=== PATIENT | male | born 1985 | race Caucasian/White ===

== ENCOUNTER 2017-10-19 12:39 | Emergency (ER) | payer OTHER ==
[2017-10-19] MEDS ORDERED: CYCLOBENZAPRINE 10 MG TAB ONE (14:55)
[2017-10-19] MEDS ORDERED: KETOROLAC 30 MG/ML INJ ONE (14:55)
--- NOTE | 2017-10-19 15:09 | ER ---
Nurse's Notes [facility] Name: Elias Kilgore Age: 32 yrs Sex: Male : 1985 Arrival Date: 10/19/2017 Time: 12:41 Bed 11 Private MD: José Flores Diagnosis: Low back pain Presentation: 10/19 12:51 Presenting complaint: Patient states: " I have been having back pain that goes down to ph knee." Reports LL back pain that radiates to L hip and L knee, denies injury. Transition of care: patient was not received from another setting of care. Onset of symptoms was October 19, 2017. Risk Assessment: Do you want to hurt yourself or someone else? Patient reports no desire to harm self or others. Initial Sepsis Screen: Does the patient meet any 2 criteria? No. Patient's initial sepsis screen is negative. Does the patient have a suspected source of infection? No. Patient's initial sepsis screen is negative. Care prior to arrival: None. 12:51 Method Of Arrival: Ambulatory 12:51 Acuity: CHENTE 4 ph Historical: - Allergies: 12:56 PENICILLINS; ph - Home Meds: 12:56 None [Active]; ph - PMHx: 12:56 None; ph - PSHx: 12:56 Knee surgery; ph - Immunization history:: Adult Immunizations. - Social history:: Smoking status: Patient/guardian denies using tobacco. - Ebola Screening: : Patient denies travel to an Ebola-affected area in the 21 days before illness onset. Screenin:03 Abuse screen: Denies threats or abuse. Nutritional screening: No deficits noted. tw2 Tuberculosis screening: No symptoms or risk factors identified. Fall Risk None identified. Assessment: 14:22 General: Appears in no apparent distress. well groomed, Behavior is calm, cooperative, tw2 appropriate for age. Pain: Complains of pain in back Pain radiates to left leg. Neuro: Level of Consciousness is awake, alert, obeys commands, Oriented to person, place, time, situation. Cardiovascular: Denies chest pain, shortness of breath, Capillary refill < 3 seconds Patient's skin is warm and dry. Respiratory: Airway is patent Respiratory effort is even, unlabored, Respiratory pattern is regular, symmetrical. GI: No signs and/or symptoms were reported involving the gastrointestinal system. : No signs and/or symptoms were reported regarding the genitourinary system. EENT: No signs and/or symptoms were reported regarding the EENT system. Derm: No signs and/or symptoms reported regarding the dermatologic system. Musculoskeletal: Circulation, motion, and sensation intact. Reports pain in back. 15:27 Reassessment: Patient appears in no apparent distress at this time. Patient and/or tw2 family updated on plan of care and expected duration. Pain level reassessed. Patient is alert, oriented x 3, equal unlabored respirations, skin warm/dry/pink. Patient states feeling better. Patient states symptoms have improved. Vital Signs: 12:56 BP 139 / 92; Pulse 94; Resp 18; Temp 97.2; Pulse Ox 96% on R/A; Weight 145.15 kg; ph Height 6 ft. 3 in. (190.50 cm); Pain 7/10; 14:47 BP 126 / 89; Pulse 96; Resp 17; Pulse Ox 99% on R/A; Pain 7/10; tw2 12:56 Body Mass Index 40.00 (145.15 kg, 190.50 cm) ph ED Course: 12:41 Patient arrived in ED. sb2 12:42 José Flores MD is Private Physician. sb2 12:56 Triage completed. ph 12:56 Arm band placed on. ph 14:22 Bed in low position. Call light in reach. Adult w/ patient. Pulse ox on. NIBP on. tw2 14:23 Katie Morrison FNP-C is [facility]. kb 14:23 Edi Kessler MD is Attending Physician. kb 14:46 Jinny Orodñez, MARTY is Primary Nurse. tw2 15:27 No provider procedures requiring assistance completed. Patient did not have IV access tw2 during this emergency room visit. Administered Medications: 14:53 Drug: Flexeril 10 mg Route: PO; tw2 15:26 Follow up: Response: No adverse reaction tw2 14:54 Drug: TORadol 60 mg Route: IM; Site: right deltoid; tw2 15:26 Follow up: Response: No adverse reaction; Pain is decreased tw2 Outcome: 15:09 Discharge ordered by . kb 15:27 Discharged to home ambulatory, with significant other. tw2 15:27 Condition: stable 15:27 Discharge instructions given to patient, significant other, Instructed on discharge instructions, follow up and referral plans. no drinking with medication, no driving heavy equipment, medication usage, Demonstrated understanding of instructions, follow-up care, medications, Prescriptions given X 2. 15:27 Patient left the ED. tw2 Signatures: Katie Morrison, DIALYSIS BIOMED TECHNICIAN-C DIALYSIS BIOMED TECHNICIAN-Elizabeth Luevano RN RN Ordoñez, MARTY Stearns RN tw2 Alida Earl 2
--- NOTE | 2017-10-19 15:09 | EDPHYS ---
Physician Documentation [facility] Name: Elias Kilgore Age: 32 yrs Sex: Male : 1985 Arrival Date: 10/19/2017 Time: 12:41 Bed 11 Private MD: José Flores ED Physician Edi Kessler HPI: 10/19 15:08 This 32 yrs old Male presents to ER via Ambulatory with complaints of Back kb Pain. 15:08 The patient presents with pain that is acute, with no known mechanism of injury. The kb symptoms are located in the low back. Onset: The symptoms/episode began/occurred this morning. The pain radiates to the left leg. Associated signs and symptoms: The patient has no apparent associated signs or symptoms. The problem was sustained when bending over. Modifying factors: The patient symptoms are alleviated by nothing, the patient symptoms are aggravated by any movement. Severity of symptoms: At their worst the symptoms were moderate, in the emergency department the symptoms are unchanged. The patient has not experienced similar symptoms in the past. The patient has not recently seen a physician. Historical: - Allergies: 12:56 PENICILLINS; ph - Home Meds: 12:56 None [Active]; ph - PMHx: 12:56 None; ph - PSHx: 12:56 Knee surgery; ph - Immunization history:: Adult Immunizations. - Social history:: Smoking status: Patient/guardian denies using tobacco. - Ebola Screening: : Patient denies travel to an Ebola-affected area in the 21 days before illness onset. ROS: 15:07 Constitutional: Negative for fever, chills, and weight loss, Cardiovascular: Negative kb for chest pain, palpitations, and edema, Respiratory: Negative for shortness of breath, cough, wheezing, and pleuritic chest pain, Abdomen/GI: Negative for abdominal pain, nausea, vomiting, diarrhea, and constipation, : Negative for injury, bleeding, discharge, and swelling, MS/Extremity: Negative for injury and deformity, Skin: Negative for injury, rash, and discoloration, Neuro: Negative for headache, weakness, numbness, tingling, and seizure. 15:07 Back: Positive for pain at rest, pain with movement, radiated pain, of the low back area. Exam: 15:07 Constitutional: This is a well developed, well nourished patient who is awake, alert, kb and in no acute distress. Head/Face: Normocephalic, atraumatic. Chest/axilla: Normal chest wall appearance and motion. Nontender with no deformity. No lesions are appreciated. Cardiovascular: Regular rate and rhythm with a normal S1 and S2. No gallops, murmurs, or rubs. Normal PMI, no JVD. No pulse deficits. Respiratory: Lungs have equal breath sounds bilaterally, clear to auscultation and percussion. No rales, rhonchi or wheezes noted. No increased work of breathing, no retractions or nasal flaring. Abdomen/GI: Soft, non-tender, with normal bowel sounds. No distension or tympany. No guarding or rebound. No evidence of tenderness throughout. Skin: Warm, dry with normal turgor. Normal color with no rashes, no lesions, and no evidence of cellulitis. MS/ Extremity: Pulses equal, no cyanosis. Neurovascular intact. Full, normal range of motion. Neuro: Awake and alert, GCS 15, oriented to person, place, time, and situation. Cranial nerves II-XII grossly intact. Motor strength 5/5 in all extremities. Sensory grossly intact. Cerebellar exam normal. Normal gait. 15:07 Back: pain, that is moderate, of the low back area, ROM is normal, normal spinal alignment noted. Vital Signs: 12:56 BP 139 / 92; Pulse 94; Resp 18; Temp 97.2; Pulse Ox 96% on R/A; Weight 145.15 kg; ph Height 6 ft. 3 in. (190.50 cm); Pain 7/10; 14:47 BP 126 / 89; Pulse 96; Resp 17; Pulse Ox 99% on R/A; Pain 7/10; tw2 12:56 Body Mass Index 40.00 (145.15 kg, 190.50 cm) ph MDM: 14:27 Patient medically screened. kb 15:07 Data reviewed: vital signs, nurses notes. Data interpreted: Pulse oximetry: on room air kb is 99 %. Interpretation: normal. Counseling: I had a detailed discussion with the patient and/or guardian regarding: the historical points, exam findings, and any diagnostic results supporting the discharge/admit diagnosis, the need for outpatient follow up, a family practitioner, to return to the emergency department if symptoms worsen or persist or if there are any questions or concerns that arise at home. Administered Medications: 14:53 Drug: Flexeril 10 mg Route: PO; tw2 15:26 Follow up: Response: No adverse reaction tw2 14:54 Drug: TORadol 60 mg Route: IM; Site: right deltoid; tw2 15:26 Follow up: Response: No adverse reaction; Pain is decreased tw2 Disposition: 15:35 Co-signature as Attending Physician, Edi Kessler MD. rn Disposition: 10/19/17 15:09 Discharged to Home. Impression: Low back pain. - Condition is Stable. - Discharge Instructions: Back Injury Prevention, [id number], Back Pain, Adult, [id number]. - Prescriptions for Cyclobenzaprine 10 mg Oral Tablet - take 1 tablet by ORAL route every 8 hours As needed; 21 tablet. Diclofenac Sodium 75 mg Oral Tablet, Delayed Release (E.C.) - take 1 tablet by ORAL route 2 times per day As needed; 30 tablet. - Medication Reconciliation Form, Thank You Letter, Antibiotic Education, Prescription Opioid Use, Work release form, Family Work Release form. - Follow up: Emergency Department; When: As needed; Reason: Worsening of condition. Follow up: Private Physician; When: 2 - 3 days; Reason: Recheck today's complaints, Continuance of care, Re-evaluation by your physician. Signatures: Katie Morrison, BINDING FOLDER MACHINE-C BINDING FOLDER MACHINE-Ckb Edi Kessler MD MD rn Hall, Patricia, RN RN Jinny Ordoñez RN RN tw2 Corrections: (The following items were deleted from the chart) 15:27 15:09 10/19/2017 15:09 Discharged to Home. Impression: Low back pain. Condition is tw2 Stable. Forms are Work release form, Medication Reconciliation Form, Thank You Letter, Antibiotic Education, Prescription Opioid Use. Follow up: Emergency Department; When: As needed; Reason: Worsening of condition. Follow up: Private Physician; When: 2 - 3 days; Reason: Recheck today's complaints, Continuance of care, Re-evaluation by your physician. kb
== END 2017-10-19 15:27 | disposition home or self-care (01) ==
LOC: ER 12:39
DX: M54.5 Low back pain (principal); Z88.0 Allergy status to penicillin
CPT/HCPCS: 96372; 99283

== ENCOUNTER 2017-10-21 10:09 | Emergency (ER) | payer OTHER ==
[2017-10-21] MEDS ORDERED: HYDROCODONE/APAP 5/325 MG TAB ONE (11:02)
[2017-10-21] MEDS ORDERED: IBUPROFEN 400 MG TAB ONE (11:02)
[2017-10-21] MEDS ORDERED: DIAZEPAM 5 MG TABLET ONE (11:03)
--- NOTE | 2017-10-21 11:58 | RAD REPORT ---
EXAM DESCRIPTION: USExtremity Venous Uni Ltd10/21/2017 11:49 am CLINICAL HISTORY: left leg pain and swelling. COMPARISON: None. FINDINGS: Left common femoral, superficial femoral, popliteal and posterior tibial veins are compre ssible and demonstrate augmentation. Doppler demonstrates good flow. IMPRESSION: No evidence of deep venous thrombosis involving the left lower extremity.
--- NOTE | 2017-10-21 12:27 | EDPHYS ---
Physician Documentation [facility] Name: Elias Kilgore Age: 32 yrs Sex: Male : 1985 Arrival Date: 10/21/2017 Time: 10:12 Bed 17 Private MD: José Flores ED Physician Wesley Arizmendi HPI: 10/21 10:44 This 32 yrs old Male presents to ER via Ambulatory with complaints of Back jmm Pain. 10:44 The patient presents with pain, that is acute. The complaints affect the left gluteal jmm fold, left hamstring, posterior aspect of left knee and left calf. Onset: The symptoms/episode began/occurred acutely. 10:44 This is a 32 year old male that presents to the ED with left leg pain which initially jmm developed after he extended his knee 1 week ago while sitting. Patient states that pain is worse while sitting and alleviated when he is laying on his abdomen. Patient denies urinary retention, fecal incontinence, numbness. Was evaluated 2 days ago and prescribed muscle relaxers without relief. Patient denies back pain. . Historical: - Allergies: 10:15 PENICILLINS; aj - Home Meds: 10:15 Cyclobenzaprine Oral [Active]; diclofenac oral oral [Active]; aj - PMHx: 10:15 None; aj - PSHx: 10:15 Knee surgery; aj - Immunization history:: Adult Immunizations up to date. - Social history:: Smoking status: Patient/guardian denies using tobacco. - Ebola Screening: : Patient negative for fever greater than or equal to 101.5 degrees Fahrenheit, and additional compatible Ebola Virus Disease symptoms Patient denies exposure to infectious person Patient denies travel to an Ebola-affected area in the 21 days before illness onset No symptoms or risks identified at this time. ROS: 10:44 Constitutional: Negative for fever, chills, and weight loss, Eyes: Negative for injury, jmm pain, redness, and discharge, Cardiovascular: Negative for chest pain, palpitations, and edema, Respiratory: Negative for shortness of breath, cough, wheezing, and pleuritic chest pain, Abdomen/GI: Negative for abdominal pain, nausea, vomiting, diarrhea, and constipation. 10:44 MS/extremity: Positive for pain. 10:44 Neuro: Negative for numbness. 10:44 All other systems are negative. Exam: 10:44 Head/Face: atraumatic. Chest/axilla: Normal chest wall appearance and motion. robin Cardiovascular: Regular rate and rhythm. No edema appreciated Respiratory: Normal respirations, no respiratory distress appreciated 10:44 Constitutional: The patient appears in no acute distress, alert, awake. 10:44 Musculoskeletal/extremity: pain is elicited on palpation of the left posterior thigh, left posterior lower leg, compartments are soft, full dorsalis pedis pulse, extensor hallucis longus intact, NVI. 10:44 Skin: Appearance: Color: normal in color. 10:44 Neuro: Orientation: is normal, Mentation: is normal, Memory: is normal. 10:44 Psych: Behavior/mood is pleasant, cooperative. Vital Signs: 10:15 BP 163 / 113; Pulse 90; Resp 16; Temp 97.0; Pulse Ox 97% on R/A; Weight 136.08 kg; aj Height 6 ft. 3 in. (190.50 cm); 11:05 BP 136 / 92; Pulse 76; Resp 18; Pulse Ox 96% on R/A; Pain 7/10; em 12:41 BP 130 / 96; Pulse 75; Resp 16; Pulse Ox 97% on R/A; Pain 4/10; em 10:15 Body Mass Index 37.50 (136.08 kg, 190.50 cm) aj MDM: 10:41 Patient medically screened. [facility] 12:26 Data reviewed: vital signs, nurses notes, radiologic studies, ultrasound. Counseling: I robin had a detailed discussion with the patient and/or guardian regarding: the historical points, exam findings, and any diagnostic results supporting the discharge/admit diagnosis, radiology results, the need for outpatient follow up, to return to the emergency department if symptoms worsen or persist or if there are any questions or concerns that arise at home. Response to treatment: the patient's symptoms have markedly improved after treatment. 10/21 10:42 Order name: US Extremity Venous Unilateral Ltd; Complete Time: 12:01 [facility] Administered Medications: 11:00 Drug: Vega 5 mg-325 mg 1 tabs Route: PO; em 12:29 Follow up: Response: No adverse reaction; Pain is decreased em 11:00 Drug: Valium 5 mg Route: PO; em 12:29 Follow up: Response: No adverse reaction; Pain is decreased em 11:00 Drug: Ibuprofen 800 mg Route: PO; em 12:29 Follow up: Response: No adverse reaction; Pain is decreased em Disposition: 10/21/17 12:26 Discharged to Home. Impression: Strain of other muscles and tendons at lower leg level. - Condition is Stable. - Discharge Instructions: Hamstring Strain. - Prescriptions for Ultracet 37.5- 325 mg Oral Tablet - take 1 tablet by ORAL route every 6 hours - for up to 5 days; do not exceed 8 tablets per day.; 12 tablet. orphenadrine citrate 100 mg Oral Tablet Sustained Release - take 1 tablet by ORAL route 2 times per day As needed; 20 tablet. - Work release form, Medication Reconciliation Form, Thank You Letter, Antibiotic Education, Prescription Opioid Use form. - Follow up: Morgan Ramirez MD; When: 1 - 2 days; Reason: Recheck today's complaints, Continuance of care, Re-evaluation by your physician. Addendum: 10/23/2017 07:50 Co-signature as Attending Physician, Wesley Arizmendi MD I agree with the assessment and w a plan of care. Signatures: Dispatcher [employer] Mavis Nina, RN RN Ricky Donaldson PA PA [email or web address] Jose Raul Hamilton, LIQUEFIER LIQUEFIER Wesley Arizmendi MD MD la Corrections: (The following items were deleted from the chart) 10/21 12:43 12:26 10/21/2017 12:26 Discharged to Home. Impression: Strain of other muscles and em tendons at lower leg level. Condition is Stable. Forms are Medication Reconciliation Form, Thank You Letter, Antibiotic Education, Prescription Opioid Use. Follow up: Morgan Ramirez; When: 1 - 2 days; Reason: Recheck today's complaints, Continuance of care, Re-evaluation by your physician. robin
--- NOTE | 2017-10-21 12:27 | ER ---
Nurse's Notes [facility] Name: Elias Kilgore Age: 32 yrs Sex: Male : 1985 Arrival Date: 10/21/2017 Time: 10:12 Bed 17 Private MD: José Flores Diagnosis: Strain of other muscles and tendons at lower leg level Presentation: 10/21 10:13 Presenting complaint: Patient states: Pain in back of left calf for 2 days that aj radiates to low back. Transition of care: patient was not received from another setting of care. Onset of symptoms was October 19, 2017. Risk Assessment: Do you want to hurt yourself or someone else? Patient reports no desire to harm self or others. Initial Sepsis Screen: Does the patient meet any 2 criteria? No. Patient's initial sepsis screen is negative. Does the patient have a suspected source of infection? No. Patient's initial sepsis screen is negative. Care prior to arrival: None. 10:13 Method Of Arrival: Ambulatory aj 10:13 Acuity: CHENTE 3 aj Triage Assessment: 10:15 General: Appears in no apparent distress. uncomfortable, Behavior is calm, cooperative, aj appropriate for age. Pain: Complains of pain in left gluteal fold, left hamstring, posterior aspect of left knee and left calf. Neuro: Level of Consciousness is awake, alert, obeys commands, Oriented to person, place, time, situation, Appropriate for age. Respiratory: Airway is patent Respiratory effort is even, unlabored, Respiratory pattern is regular, symmetrical. Derm: Skin is intact, is healthy with good turgor, Skin is pink, warm \T\ dry. normal. Musculoskeletal: Circulation, motion, and sensation intact. Range of motion: intact in all extremities, Reports Tight sensation in left lower leg. Historical: - Allergies: 10:15 PENICILLINS; aj - Home Meds: 10:15 Cyclobenzaprine Oral [Active]; diclofenac oral oral [Active]; aj - PMHx: 10:15 None; aj - PSHx: 10:15 Knee surgery; aj - Immunization history:: Adult Immunizations up to date. - Social history:: Smoking status: Patient/guardian denies using tobacco. - Ebola Screening: : Patient negative for fever greater than or equal to 101.5 degrees Fahrenheit, and additional compatible Ebola Virus Disease symptoms Patient denies exposure to infectious person Patient denies travel to an Ebola-affected area in the 21 days before illness onset No symptoms or risks identified at this time. Screenin:05 Abuse screen: Denies threats or abuse. Nutritional screening: No deficits noted. em Tuberculosis screening: No symptoms or risk factors identified. Fall Risk None identified. Assessment: 10:30 General: Appears in no apparent distress. uncomfortable, Behavior is calm, cooperative. em Pain: Complains of pain in left calf Pain radiates to left low back and right low back Pain currently is 7 out of 10 on a pain scale. Neuro: Level of Consciousness is awake, alert, obeys commands, Oriented to person, place, time, situation. Cardiovascular: Capillary refill < 3 seconds Patient's skin is warm and dry. Respiratory: Airway is patent Respiratory effort is even, unlabored, Respiratory pattern is regular, symmetrical. GI: Abdomen is round non-distended. : No signs and/or symptoms were reported regarding the genitourinary system. EENT: No signs and/or symptoms were reported regarding the EENT system. Derm: Skin is intact, Skin is pink, warm \T\ dry. normal, Skin temperature is warm. Musculoskeletal: Range of motion: intact in all extremities. 10:30 Reassessment: I agree with assessment completed by BEKAH Holman aa5 11:44 Reassessment: Patient appears in no apparent distress at this time. Patient and/or em family updated on plan of care and expected duration. Pain level reassessed. Patient is alert, oriented x 3, equal unlabored respirations, skin warm/dry/pink. rates 5/10 Patient states feeling better. 12:41 Reassessment: Patient appears in no apparent distress at this time. Patient and/or em family updated on plan of care and expected duration. Pain level reassessed. Patient is alert, oriented x 3, equal unlabored respirations, skin warm/dry/pink. Patient states feeling better. Vital Signs: 10:15 BP 163 / 113; Pulse 90; Resp 16; Temp 97.0; Pulse Ox 97% on R/A; Weight 136.08 kg; aj Height 6 ft. 3 in. (190.50 cm); 11:05 BP 136 / 92; Pulse 76; Resp 18; Pulse Ox 96% on R/A; Pain 7/10; em 12:41 BP 130 / 96; Pulse 75; Resp 16; Pulse Ox 97% on R/A; Pain 4/10; em 10:15 Body Mass Index 37.50 (136.08 kg, 190.50 cm) ED Course: 10:12 Patient arrived in ED. mr 10:12 José Flores MD is Private Physician. mr 10:14 Triage completed. aj 10:15 Arm band placed on right wrist. Patient placed in an exam room. aj 10:17 Jose Raul Hamilton LVN is Primary Nurse. em 10:24 Ricky Drake PA is PHCP. m 10:24 Wesley Arizmendi MD is Attending Physician. jmm 11:05 Patient has correct armband on for positive identification. Bed in low position. Call em light in reach. 11:05 No provider procedures requiring assistance completed. em 11:39 Ultrasound completed. Patient tolerated well. sg3 11:49 US Extremity Venous Unilateral Ltd In Process Unspecified. EDMS 12:26 Morgan Ramirez MD is Referral Physician. [facility] 12:42 Patient did not have IV access during this emergency room visit. em Administered Medications: 11:00 Drug: Greenwood 5 mg-325 mg 1 tabs Route: PO; em 12:29 Follow up: Response: No adverse reaction; Pain is decreased em 11:00 Drug: Valium 5 mg Route: PO; em 12:29 Follow up: Response: No adverse reaction; Pain is decreased em 11:00 Drug: Ibuprofen 800 mg Route: PO; em 12:29 Follow up: Response: No adverse reaction; Pain is decreased em Outcome: 12:26 Discharge ordered by MD. [facility] 12:42 Discharged to home ambulatory. em 12:42 Condition: good 12:42 Discharge instructions given to patient, Instructed on discharge instructions, follow up and referral plans. medication usage, Demonstrated understanding of instructions, follow-up care, medications, Prescriptions given X 2. 12:43 Patient left the ED. em Signatures: Dispatcher [employer] EDMS Mavis Calixto, RN Rciky Chairez PA PA Susie Ramirez mr AlfonsoJose Raul LVN HOT MILL OPERATOR em Rahel Hall RN RN aa5 Godinez, Sarah sg3
== END 2017-10-21 12:43 | disposition home or self-care (01) ==
LOC: ER 10:09
DX: S86.912A Strain of unspecified muscle(s) and tendon(s) at lower leg level, left leg, initial encounter (principal); X58.XXXA Exposure to other specified factors, initial encounter; Y93.9 Activity, unspecified; Z88.0 Allergy status to penicillin
CPT/HCPCS: 93971; 99283